=== PATIENT | male | born 1970 ===

== ENCOUNTER 2022-11-17 14:32 | Emergency (ER) | payer SELFPAY ==
[~2022-11-17] VITALS: Ht 165.1 cm; Wt 84.0 kg
[2022-11-17 14:35] VITALS: BP 151/106
[2022-11-17 16:39] LABS: BASOPHILS % 0.8 % (0.0-2.0); EOSINOPHILS % 2.3 % (0.0-5.0); HEMATOCRIT. 31.4 % (42.0-52.0); HEMOGLOBIN. 9.7 g/dL (14.0-18.0); LYMPHOCYTES % 28.7 % (20.0-50.0); MEAN CORPUSCULAR HEMOGLOBIN 22.5 pg (28.0-32.0); MEAN CORPUSCULAR VOLUME 73.3 fL (80.0-94.0); MEAN PLATELET VOLUME 6.8 fl (7.4-10.4); MONOCYTES % 6.1 % (2.0-8.0); NEUTROPHILS % 62.1 % (40.0-76.0); PLATELET 544 x1000/uL (130-400); RED BLOOD CELL COUNT 4.29 mill/uL (4.7-6.1); RED CELL DISTRIBUTION WIDTH 20.6 % (11.6-14.6)
[2022-11-17 16:47] LABS: CHLORIDE 107 mEq/L (98-107)
== END 2022-11-17 19:07 | disposition home or self-care (01) ==
LOC: ER 14:32
DX: K29.70 Gastritis, unspecified, without bleeding (principal); D64.9 Anemia, unspecified; I10 Essential (primary) hypertension
CPT/HCPCS: 36415; 80053; 85025; 93005; 99284